=== PATIENT | female | born 1975 | race American Indian/Alaskan Native ===

== ENCOUNTER 2016-11-08 22:24 | Emergency (ER) | payer MEDICAID ==
[2016-11-08 22:38] VITALS: TEMP 97.2
[2016-11-08] MEDS ORDERED: Labetalol 5 mg/ml Inj 20ML IVP STA (23:57)
--- NOTE | 2016-11-09 00:03 | ED PDOC ---
HPI: Hypertension/Hypotension Time Seen by Provider: 11/08/16 22:30 Chief Complaint (Nursing): High Blood Pressure Chief Complaint (Provider): Dizziness and High Blood Pressure History Per: Patient History/Exam Limitations: no limitations Current Symptoms Are (Timing): Still Present Associated Symptoms: denies: Chest Pain Additional Complaint(s): 41 year old female presents to ED with complaints of dizziness and high blood pressure and has a past medical history of HTN. Patient states she was put on Amlodipine x4 months ago by PCP but is noncompliant with the medication because of "how it makes her feel". Notes systolic blood pressure in 170s for the last few days. (+) dizziness and headache x1 week. Confirms headache is worse on the left side than the right. (-) fever, chest pain, vomiting, diarrhea, falls or syncope. Current blood pressure is 178/87. PCP: Dharmesh Olson Past Medical History Reviewed: Historical Data, Nursing Documentation, Vital Signs Vital Signs: Last Vital Signs Temp 97.2 F L 11/08/16 22:35 Pulse 62 11/08/16 23:35 Resp 20 11/08/16 23:35 BP 148/96 H 11/08/16 23:35 Pulse Ox 99 11/08/16 23:35 - Medical History PMH: HTN - Surgical History Other surgeries: Hysterectomy in 2011 - Family History Family History: States: Unknown Family Hx - Social History Current smoker - smoking cessation education provided: Yes (0.5 PPD) Ex-Smoker (has not smoked in the last 12 months): No Alcohol: None Drugs: Denies - Allergies Allergies/Adverse Reactions: Allergies Allergy/AdvReac Type Severity Reaction Status Date / Time No Known Allergies Allergy Verified 11/08/16 23:24 Review of Systems ROS Statement: Except As Marked, All Systems Reviewed And Found Negative Constitutional: Positive for: Other ((+) high blood pressure). Negative for: Fever Cardiovascular: Negative for: Chest Pain Gastrointestinal: Negative for: Vomiting, Diarrhea Neurological: Positive for: Headache, Dizziness Physical Exam - Reviewed Nursing Documentation Reviewed: Yes Vital Signs Reviewed: Yes - Physical Exam Appears: Positive for: Well, Non-toxic, No Acute Distress Head Exam: Positive for: ATRAUMATIC, NORMOCEPHALIC Skin: Positive for: Normal Color, Warm, Dry Eye Exam: Positive for: Normal appearance ENT: Positive for: Normal ENT Inspection Neck: Positive for: Normal, Painless ROM Cardiovascular/Chest: Positive for: Regular Rate, Rhythm Respiratory: Positive for: Normal Breath Sounds. Negative for: Respiratory Distress Gastrointestinal/Abdominal: Positive for: Normal Exam, Soft Extremity: Positive for: Normal ROM. Negative for: Deformity Neurologic/Psych: Positive for: Alert, Oriented. Negative for: comber tender II-XII, Motor/Sensory Deficits - Laboratory Results Result Diagrams: 11/09/16 00:15 11/09/16 00:15 - ECG O2 Sat by Pulse Oximetry: 99 (RA) Pulse Ox Interpretation: Normal Medical Decision Making Medical Decision Makin Initial impression: HTN induced dizziness Initial plan: * CT HEAD * Labs * TROP I * Trandate 20mg IVP * Re-eval 0032 CT FINDINGS Brain: No acute intracranial hemorrhage. No significant white matter disease. No edema. Ventricles: No significant ventriculomegaly. Bones: No acute displaced fracture. Sinuses: Unremarkable as visualized. No acute sinusitis. Mastoid air cells: Unremarkable as visualized. No mastoid effusion. IMPRESSION: No acute intracranial hemorrhage, or suspicious mass effect. 0130 Blood pressure has stabilized at 140s/70s Labs: WNL Patient notes headache has mitigated. Dx: high blood pressure and headache. Patient must follow up with PCP and start compliance with medications. Patient is stable for discharge. Scribe Attestation: Documented by Estella Villagomez acting as a scribe for Jhonny Poon MD. Scribe Attestation: All medical record entries made by the Scribe were at my direction and personally dictated by me. I have reviewed the chart and agree that the record accurately reflects my personal performance of the history, physical exam, medical decision making, and the department course for this patient. I have also personally directed, reviewed, and agree with the discharge instructions and disposition. Disposition - Clinical Impression Clinical Impression: Abnormal blood pressure, Headache - Patient ED Disposition Is Patient to be Admitted: No Counseled Patient/Family Regarding: Studies Performed - Disposition Referrals: [facility] [Outside] Dharmesh Olson MD [Family Provider] - Disposition: Routine/Home Disposition Time: 01:10 Condition: IMPROVED Additional Instructions: follow up with your primary doctor DR Olson within one to two days for blood pressure management return to the ED with any worsening or concerning symptoms Instructions: Hypertension (ED) Forms: [employer] (Russian), [facility] ED School/Work Excuse
[2016-11-09 00:20] LABS: BASO # 0.1 K/uL (0.0-0.2); BASO % 1.1 % (0.0-2.0); EOS # 0.3 K/uL (0.0-0.7); EOS % 2.6 % (0.0-4.0); HEMATOCRIT 38.4 % (34.0-47.0); LYMPH # 4.4 K/uL (1.0-4.3); LYMPH % 38.6 % (20.0-40.0); MEAN CELL VOLUME 90.8 fl (81.0-99.0); MEAN CORPUSCULAR HEMOGLOBIN 30.1 pg (27.0-31.0); MEAN CORPUSCULAR HGB CONC 33.1 g/dL (33.0-37.0); MEAN PLATELET VOLUME 8.3 fl (7.2-11.7); MONO % 8.7 % (0.0-10.0); NEUT # 5.6 K/uL (1.8-7.0); NRBC % 0.1 % (0.0-0.0); RED CELL DISTRIBUTION WIDTH 13.7 % (11.5-14.5); WHITE BLOOD COUNT 11.3 K/uL (4.8-10.8)
[2016-11-09 00:28] LABS: ALB/GLOB RATIO 1.8 (1.0-2.1); ALKALINE PHOSPHATASE 60 U/L (38-126); ALT/SGPT 30 U/L (9-52); AST/SGOT 20 U/L (14-36); BILIRUBIN,TOTAL 0.4 mg/dl (0.2-1.3); BLOOD UREA NITROGEN 16 mg/dl (7-17); CALCIUM 10.4 mg/dL (8.4-10.2); CARBON DIOXIDE 24 mmol/L (22-30); CHLORIDE 105 mmol/L (98-107); GFR AFRICAN-AMERICAN > 60; GLUCOSE,RANDOM 105 mg/dL (65-105); POTASSIUM 3.8 MMOL/L (3.6-5.0); SODIUM 138 mmol/l (132-148); TOTAL PROTEIN 6.6 G/DL (6.3-8.2)
--- NOTE | 2016-11-09 00:32 | CT ---
EXAM: CT Head Without Intravenous Contrast CLINICAL HISTORY: 41 years old, female; Pain; Headache TECHNIQUE: Axial computed tomography images of the head/brain without intravenous contrast. All CT scans at this facility use one or more dose reduction techniques, viz.: automated exposure control; ma/kV adjustment per patient size (including targeted exams where dose is matched to indication; i.e. head); or iterative reconstruction technique. Coronal and sagittal reformatted images were created and reviewed. COMPARISON: No relevant prior studies available. FINDINGS: Brain: No acute intracranial hemorrhage. No significant white matter disease. No edema. Ventricles: No significant ventriculomegaly. Bones: No acute displaced fracture. Sinuses: Unremarkable as visualized. No acute sinusitis. Mastoid air cells: Unremarkable as visualized. No mastoid effusion. IMPRESSION: No acute intracranial hemorrhage, or suspicious mass effect.
[2016-11-09 01:07] VITALS: BP 143/77; PULSE 69; RESP 16
[2016-11-09 01:48] VITALS: O2SAT 99
== END 2016-11-09 03:12 | disposition home or self-care (01) ==
LOC: H.ER 22:24
DX: R51 Headache (principal); I10 Essential (primary) hypertension
CPT/HCPCS: 70450; 80053; 81025; 84484; 85025; 96374; 99284; J1885